=== PATIENT | female | born 1990 | race Caucasian/White ===

== ENCOUNTER 2021-09-13 19:21 | Emergency (ER) | payer BC ==
[~2021-09-13] VITALS: Ht 157.5 cm; Wt 70.3 kg
[2021-09-13 20:24] VITALS: BP 146/84
[2021-09-13] MEDS ORDERED: TRIA15CR2 TP (20:39)
[2021-09-13] MEDS ORDERED: DIPH25CA83 PO (20:39)
--- NOTE | 2021-09-13 21:04 | NUR ---
Patient discharged to home in stable condition. Written and verbal after care instructions given. Patient verbalizes understanding of instruction.
== END 2021-09-13 21:04 | disposition home or self-care (01) ==
LOC: ER 19:24
DX: L24.9 Irritant contact dermatitis, unspecified cause (principal)